=== PATIENT | male | born 2000 | race Caucasian/White ===

== ENCOUNTER 2020-05-11 21:22 | Outpatient (CLI) | payer OTHER | END 2020-05-11 21:23 | disposition critical access hospital (66) | LOC: EMS 21:22 | PROVIDERS: ATTEND Surgery | DX: R10.31 Right lower quadrant pain (principal) | CPT/HCPCS: A0425; A0427 ==

== ENCOUNTER 2020-05-11 21:48 | Emergency (ER) | payer OTHER ==
--- NOTE | 2020-05-11 21:53 | ED Physician Documentation ---
History of Present Illness - Stated complaint Stated Complaint: ABD PX - History obtained from History obtained from: Patient (20 YO USN AD M W cc of RLQ pain. arrives by ambulance. denies any other complaints. denies dysuria. denies hematuria. denies testicular pain. denies any previous medical history.) Review of Systems Constitutional: reports: Reviewed and negative Eyes: reports: Reviewed and negative Ears: reports: Reviewed and negative Nose: reports: Reviewed and negative Throat: reports: Reviewed and negative Cardiac: reports: Reviewed and negative Respiratory: reports: Reviewed and negative GI: reports: Abdominal Pain, Nausea, Vomiting : reports: Reviewed and negative Skin: reports: Reviewed and negative Musculoskeletal: reports: Reviewed and negative Neurologic: reports: Reviewed and negative Psychiatric: reports: Reviewed and negative Endocrine: reports: Reviewed and negative Immunocompromised: reports: Reviewed and negative PD PAST MEDICAL HISTORY - Present Medications Home Medications: Ambulatory Orders Medication Instructions Recorded Confirmed HYDROcod/ACETAM 5/325 [[place] 5/325] 1 tab PO Q6H PRN #10 tablet 05/11/20 Ondansetron Odt [Zofran Odt] 4 mg TL Q6H PRN #10 tablet 05/11/20 Tamsulosin [Flomax] 0.4 mg PO DAILY 7 Days #7 capsule 05/11/20 - Allergies Allergies/Adverse Reactions: Allergies Allergy/AdvReac Type Severity Reaction Status Date / Time No Known Drug Allergies Allergy Verified 05/11/20 21:53 PD ED PE NORMAL - Vitals Vital signs reviewed: Yes - General General: Alert and oriented X 3, No acute distress, Well developed/nourished - HEENT HEENT: PERRL, Moist mucous membranes, Pharynx benign - Neck Neck: Supple, no meningeal sign, No adenopathy - Cardiac Cardiac: RRR, No murmur, Strong equal pulses - Respiratory Respiratory: No respiratory distress, Clear bilaterally - Abdomen Abdomen: Normal bowel sounds, Soft, Other (tender in RLQ at mcburneys point. 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, No motor deficit, No sensory deficit, Normal speech - Psych Psych: Normal mood, Normal affect Results - Vitals Vitals: Vital Signs - 24 hr 05/11/20 05/11/20 21:53 23:01 Temperature 36.7 C Heart Rate 88 89 Respiratory 16 14 Rate Blood Pressure 141/94 H 141/84 H O2 Saturation 96 100 Oxygen O2 Source Room air - Labs Labs: Laboratory Tests 05/11/20 05/11/20 05/11/20 22:01 22:01 22:01 WBC 5.9 RBC 5.16 Hgb 15.8 Hct 44.5 MCV 86.2 MCH 30.6 MCHC 35.5 RDW 11.8 L Plt Count 229 MPV 10.2 Neut # (Auto) 3.8 Lymph # (Auto) 1.6 [place] # (Auto) 0.5 Eos # (Auto) 0.1 Baso # (Auto) 0.0 Absolute Nucleated RBC 0.00 Nucleated RBC % 0.0 PT 13.2 H INR 1.2 APTT 26.1 Sodium 138 Potassium 3.6 Chloride 104 Carbon Dioxide 27 Anion Gap 7.0 BUN 12 Creatinine 1.1 Estimated GFR (MDRD) 85 L Glucose 128 H Lactic Acid Calcium 9.6 Total Bilirubin 0.9 AST 23 ALT 32 Alkaline Phosphatase 64 Total Creatine Kinase 75 Total Protein 7.7 Albumin 4.6 Globulin 3.1 Albumin/Globulin Ratio 1.5 Lipase 34 05/11/20 22:01 WBC RBC Hgb Hct MCV MCH MCHC RDW Plt Count MPV Neut # (Auto) Lymph # (Auto) [place] # (Auto) Eos # (Auto) Baso # (Auto) Absolute Nucleated RBC Nucleated RBC % PT INR APTT Sodium Potassium Chloride Carbon Dioxide Anion Gap BUN Creatinine Estimated GFR (MDRD) Glucose Lactic Acid 1.4 Calcium Total Bilirubin AST ALT Alkaline Phosphatase Total Creatine Kinase Total Protein Albumin Globulin Albumin/Globulin Ratio Lipase PD MEDICAL DECISION MAKING - ED course Complexity details: reviewed results, re-evaluated patient (23:40. pain resolved. tolerated po challenge. able to urinate. has a ride to drive him back to [facility]. will follow up with medical at [facility] at 7 am.), considered differential (appendicitis, ureterolithiasis), d/w patient Departure - Departure Disposition: 01 Home, Self Care Clinical Impression: Kidney stone on right side Condition: Stable Instructions: Kidney Stones Follow-Up: RINALDI,GIANCARLO A, DO [Primary Care Provider] - Tomorrow Prescriptions: Tamsulosin [Flomax] 0.4 mg PO DAILY 7 Days #7 capsule HYDROcod/ACETAM 5/325 [[place] 5/325] 1 tab PO Q6H PRN #10 tablet PRN Reason: Pain Ondansetron Odt [Zofran Odt] 4 mg TL Q6H PRN #10 tablet PRN Reason: Nausea / Vomiting Comments: Follow-up rehab medical at 7 AM. You are not cleared to return to work. Follow up at [facility] Medical tomorrow at 7 am for medical clearance to return to work.
[2020-05-11] MEDS ORDERED: MORPHINE 2 MG/ML CARPUJECT IVP STA (21:55)
[2020-05-11] MEDS ORDERED: SODIUM CHLORIDE 0.9% 1,000 ML IV STA ×2 (21:55→22:49)
[2020-05-11] MEDS ORDERED: ONDANSETRON 4 MG/2 ML VIAL IVP STA (21:55)
[2020-05-11 22:08] LABS: BASOPHILS % (AUTO) 0.5 %; EOSINOPHILS # (AUTO) 0.1 10^3/uL (0.0-0.7); HGB - HEMOGLOBIN 15.8 g/dL (14.0-18.0); LYMPHOCYTES # (AUTO) 1.6 10^3/uL (1.5-3.5); LYMPHOCYTES % (AUTO) 26.3 %; MEAN CORPUSCULAR HEMOGLOBIN 30.6 pg (27.0-31.0); MEAN CORPUSCULAR HGB CONC 35.5 g/dL (32.0-36.0); MEAN CORPUSCULAR VOLUME 86.2 fL (80.0-94.0); MEAN PLATELET VOLUME 10.2 fL (7.4-11.4); MONOCYTES # (AUTO) 0.5 10^3/uL (0.0-1.0); MONOCYTES % (AUTO) 7.6 %; NEUTROPHILS # (AUTO) 3.8 10^3/uL (1.5-6.6); NEUTROPHILS % (AUTO) 64.3 %; PLT - PLATELET COUNT 229 10^3/uL (130-450); RED BLOOD COUNT 5.16 10^6/uL (4.70-6.10); RED CELL DISTRIBUTION WIDTH 11.8 % (12.0-15.0); WHITE BLOOD COUNT 5.9 x10^3/uL (4.8-10.8)
[2020-05-11] MEDS ORDERED: IOVERSOL 320 100 ML VIAL IVP ONE ×2 (22:14→22:51)
[2020-05-11 22:21] LABS: ALBUMIN 4.6 g/dL (3.2-5.5); ALBUMIN/GLOBULIN RATIO 1.5 (1.0-2.2); BILIRUBIN,TOTAL 0.9 mg/dL (0.2-1.0); CALCIUM 9.6 mg/dL (8.5-10.3); CREATININE 1.1 mg/dL (0.6-1.2); INR 1.2 (0.8-1.2); PT - PROTHROMBIN TIME 13.2 secs (9.9-12.6); TOTAL PROTEIN 7.7 g/dL (6.7-8.2)
[2020-05-11] MEDS ORDERED: KETOROLAC 30 MG/ML VIAL IVP STA (22:25)
[2020-05-11 22:28] LABS: PARTIAL THROMBOPLASTIN TIME 26.1 secs (24.9-33.3)
[2020-05-11] MEDS ORDERED: HYDROcod/ACET 5/325 Prepack 4 PO STA (23:30)
[2020-05-11] MEDS ORDERED: HYDROcod/ACETAM 5/325 MG TABLET PO STA (23:30)
[2020-05-11 23:56] VITALS: BP 146/98
--- NOTE | 2020-05-12 08:23 | CT Report ---
PROCEDURE: Abdomen/Pelvis W INDICATIONS: RLQ PAIN CONTRAST: 100 mL Optiray 320 TECHNIQUE: After the administration of oral and intravenous contrast, 5 mm thick sections acquired from the diap hragms to the symphysis. 5 mm thick coronal and sagittal reformats were acquired. For radiation dos e reduction, the following was used: automated exposure control, adjustment of mA and/or kV accordin g to patient size. COMPARISON: None. FINDINGS: Image quality: Excellent. ABDOMEN: Lung bases: Lung bases are clear. Heart size is normal. Solid organs: Liver and spleen are normal in size and enhancement. Gallbladder unremarkable. Bilia ry system is non dilated. Pancreas enhances normally. No adrenal nodules. There is an approximately 1 mm calculus at the right UVJ with mild right hydroureter and periureteric fat stranding. Peritoneum and bowel: Bowel loops demonstrate normal wall thickness and caliber. No free fluid or a ir. Nodes and vessels: No retroperitoneal or mesenteric adenopathy by size criteria. Aorta and inferior vena cava are normal in size. Miscellaneous: No ventral hernias. PELVIS: Genitourinary: Bladder wall thickness is normal. Miscellaneous: No inguinal hernias or adenopathy. Bones: No suspicious bony lesions. No vertebral body compression fractures. IMPRESSION: Mild right hydroureteronephrosis secondary to 1 mm right UVJ calculus. No significant ch samson from the preliminary report. Reviewed by: Kristian Pickard MD on 05/12/2020 8:21 AM PDT Approved by: Kristian Pickard MD on 05/12/2020 8:21 AM PDT Station ID: [id number]
== END 2020-05-12 00:02 | disposition home or self-care (01) ==
LOC: ED 21:48
DX: N13.2 Hydronephrosis with renal and ureteral calculous obstruction (principal)
CPT/HCPCS: 36415; 74177; 80053; 82550; 83605; 83690; 85025; 85610; 85730; 96361; 96374; 96375; 99283; 99284; A9270; Q9967